=== PATIENT | female | born 1985 | race African-American/Black ===

== ENCOUNTER 2016-10-29 13:43 | Observation (INO) | payer MEDICAID ==
[~2016-10-29] VITALS: Ht 165.1 cm; Wt 62.6 kg
[~2016-10-29 13:43] MED LIST: NITR100C2 PO; PREN-88 PO
== END 2016-10-29 15:00 | disposition home or self-care (01) ==
LOC: L&D 13:43
PROVIDERS: ADMIT Specialist; ATTEND Specialist
DX: O26.893 Other specified pregnancy related conditions, third trimester (principal); L29.9 Pruritus, unspecified; Z3A.29 29 weeks gestation of pregnancy
CPT/HCPCS: G0378

== ENCOUNTER 2016-10-31 10:31 | Observation (INO) | payer MEDICAID ==
[~2016-10-31] VITALS: Ht 165.1 cm; Wt 62.6 kg
[2016-10-31 11:59] LABS: CLARITY URINE CLEAR (CLEAR); COLOR URINE YELLOW (YELLOW); GLUCOSE URINE NEGATIVE (NEGATIVE); KETONES URINE NEGATIVE (NEGATIVE); LEUKOCYTE ESTERASE URINE 1+ (NEGATIVE); NITRITE URINE NEGATIVE (NEGATIVE); OCCULT BLOOD URINE NEGATIVE (NEGATIVE); PH URINE 7.5 (4.5-8.0); PROTEIN URINE NEGATIVE (NEGATIVE); SPECIFIC GRAVITY URINE 1.021 (1.005-1.030)
== END 2016-10-31 12:15 | disposition home or self-care (01) ==
LOC: L&D 10:31
PROVIDERS: ADMIT Obstetrics & Gynecology; ATTEND Obstetrics & Gynecology
DX: O26.853 Spotting complicating pregnancy, third trimester (principal); Z3A.29 29 weeks gestation of pregnancy
CPT/HCPCS: 81001; 99281; G0378

== ENCOUNTER 2016-11-09 11:25 | Emergency (ER) | payer MEDICAID ==
[~2016-11-09] VITALS: Ht 165.1 cm; Wt 64.0 kg
[2016-11-09] MEDS ORDERED: ACETAMINOPHEN 325MG TABLET PO ONE (14:00)
[2016-11-09 14:33] LABS: CLARITY URINE CLOUDY (CLEAR); COLOR URINE YELLOW (YELLOW); GLUCOSE URINE NEGATIVE (NEGATIVE); KETONES URINE NEGATIVE (NEGATIVE); LEUKOCYTE ESTERASE URINE 3+ (NEGATIVE); NITRITE URINE POSITIVE (NEGATIVE); OCCULT BLOOD URINE 3+ (NEGATIVE); PROTEIN URINE 2+ (NEGATIVE); SPECIFIC GRAVITY URINE 1.023 (1.005-1.030); UROBILINOGEN URINE 0.2 E.U./dL (0.2-1.0)
[2016-11-09] MEDS ORDERED: CEFTRIAXONE SODIUM 1 G/VIAL IM ONE (18:15)
[2016-11-09] MEDS ORDERED: LIDOCAINE HCL 1% 20ML VIAL (Pyxis) INJ INFIL ONE (18:15)
[2016-11-09] MEDS ORDERED: DEXT 5%/LACTATED RINGERS 1,000 ML IV SCH (19:38)
[2016-11-09] MEDS ORDERED: CEFAZOLIN 2,000 MG in DEXT 5% WATER 100 ML IV SCH (20:00)
[2016-11-09] MEDS ORDERED: ACETAMINOPHEN WITH CODEINE 300/30MG TABLET PO SCH (21:45)
[2016-11-09 21:53] VITALS: BP 113/58
== END 2016-11-09 23:20 | disposition home or self-care (01) ==
LOC: ER 13:50 → L&D 19:04
PROVIDERS: ADMIT Specialist; ATTEND Specialist
DX: O26.893 Other specified pregnancy related conditions, third trimester (principal); R10.9 Unspecified abdominal pain; Z3A.30 30 weeks gestation of pregnancy; Z87.442 Personal history of urinary calculi
CPT/HCPCS: 76770; 76815; 76818; 81001; 96365; 99285; G0378; J0690; X7700; Z7610; 96360; 96361; J7060

== ENCOUNTER 2017-06-20 10:36 | Emergency (ER) | payer MEDICAID ==
[~2017-06-20] VITALS: Ht 165.1 cm; Wt 52.0 kg
[~2017-06-20 10:36] MED LIST changes: +NITR100C PO; -NITR100C2 PO
[2017-06-20 10:51] VITALS: BP 123/69
[2017-06-20] MEDS ORDERED: ONDANSETRON 4MG ODT PO STA (15:09)
[2017-06-20] MEDS ORDERED: ACETAMINOPHEN 325MG TABLET PO STA (15:09)
[2017-06-20 15:29] LABS: CLARITY URINE CLOUDY (CLEAR); COLOR URINE YELLOW (YELLOW); KETONES URINE NEGATIVE (NEGATIVE); LEUKOCYTE ESTERASE URINE 3+ (NEGATIVE); NITRITE URINE POSITIVE (NEGATIVE); OCCULT BLOOD URINE TRACE (NEGATIVE); PH URINE 5.5 (4.5-8.0); PROTEIN URINE 2+ (NEGATIVE); SPECIFIC GRAVITY URINE 1.019 (1.005-1.030)
[2017-06-20 15:32] LABS: BASOPHILS % 0.2 % (0.0-2.0); HEMATOCRIT. 36.9 % (36.0-48.0); HEMOGLOBIN. 12.3 g/dL (12.0-16.0); LYMPHOCYTES % 12.7 % (20.0-50.0); MEAN CORPUSCULAR HEMOGLOBIN 31.9 pg (28.0-32.0); MEAN CORPUSCULAR VOLUME 95.7 fL (81.0-99.0); MEAN PLATELET VOLUME 7.9 fl (7.4-10.4); MONOCYTES % 9.1 % (2.0-8.0); PLATELET 250 x1000/uL (130-400); RED BLOOD CELL COUNT 3.86 mill/uL (4.2-5.4); RED CELL DISTRIBUTION WIDTH 13.6 % (11.6-14.6)
[2017-06-20 15:38] LABS: CHLORIDE 107 mEq/L (98-107)
== END 2017-06-20 16:51 | disposition home or self-care (01) ==
LOC: ER 12:54
DX: N39.0 Urinary tract infection, site not specified (principal); F17.200 Nicotine dependence, unspecified, uncomplicated
CPT/HCPCS: 36415; 80053; 81003; 81025; 85025; 87077; 87086; 87186; 99284; Q0162

== ENCOUNTER 2017-08-24 12:24 | Emergency (ER) | payer MEDICAID ==
[~2017-08-24] VITALS: Ht 162.6 cm; Wt 49.0 kg
[2017-08-24] MEDS ORDERED: SODIUM CHLORIDE 0.9% 1,000 ML IV ONE (12:31)
[2017-08-24] MEDS ORDERED: ONDANSETRON HCL 4MG/2ML VIAL IV ONE (12:45)
[2017-08-24] MEDS ORDERED: ACETAMINOPHEN 325MG TABLET PO PRN (12:45)
[2017-08-24 13:39] LABS: CLARITY URINE CLOUDY (CLEAR); COLOR URINE YELLOW (YELLOW); KETONES URINE NEGATIVE (NEGATIVE); LEUKOCYTE ESTERASE URINE 1+ (NEGATIVE); NITRITE URINE NEGATIVE (NEGATIVE); OCCULT BLOOD URINE NEGATIVE (NEGATIVE); PH URINE 6.5 (4.5-8.0); PROTEIN URINE 1+ (NEGATIVE); SPECIFIC GRAVITY URINE 1.026 (1.005-1.030); UROBILINOGEN URINE 0.2 E.U./dL (0.2-1.0)
[2017-08-24 14:03] LABS: CHLORIDE 106 mEq/L (98-107)
[2017-08-24 14:11] LABS: BASOPHILS % 0.3 % (0.0-2.0); EOSINOPHILS % 0.1 % (0.0-5.0); HEMATOCRIT. 35.3 % (36.0-48.0); LYMPHOCYTES % 21.4 % (20.0-50.0); MEAN CORPUSCULAR HEMOGLOBIN 32.1 pg (28.0-32.0); MEAN CORPUSCULAR VOLUME 94.1 fL (81.0-99.0); MEAN PLATELET VOLUME 7.3 fl (7.4-10.4); MONOCYTES % 7.2 % (2.0-8.0); PLATELET 304 x1000/uL (130-400); RED BLOOD CELL COUNT 3.75 mill/uL (4.2-5.4); RED CELL DISTRIBUTION WIDTH 13.8 % (11.6-14.6)
[2017-08-24 14:27] LABS: B-HCG QUANTITATIVE 48030 mIU/mL (<3)
[2017-08-24 15:52] VITALS: BP 142/88
[2017-08-24] MEDS ORDERED: METOCLOPRAMIDE HCL 10MG TABLET PO ONE (16:15)
[2017-08-24] MEDS: METOCLOPRAMIDE HCL 10MG TABLET PO NR ×2 (16:26→16:31)
== END 2017-08-24 16:21 | disposition home or self-care (01) ==
LOC: ER 13:51
DX: O20.0 Threatened abortion (principal); O23.11 Infections of bladder in pregnancy, first trimester; Z3A.08 8 weeks gestation of pregnancy; Z87.891 Personal history of nicotine dependence
CPT/HCPCS: 36415; 76801; 76817; 80053; 81003; 81025; 84702; 85025; 86850; 86900; 86901; 99285; J7030; Z7610; J8597

== ENCOUNTER 2017-10-26 14:45 | Emergency (ER) | payer MEDICAID ==
[~2017-10-26] VITALS: Ht 162.6 cm; Wt 53.0 kg
[2017-10-26 15:35] LABS: CLARITY URINE CLEAR (CLEAR); COLOR URINE YELLOW (YELLOW); KETONES URINE TRACE (NEGATIVE); LEUKOCYTE ESTERASE URINE TRACE (NEGATIVE); NITRITE URINE NEGATIVE (NEGATIVE); OCCULT BLOOD URINE NEGATIVE (NEGATIVE); PH URINE 6.5 (4.5-8.0); PROTEIN URINE NEGATIVE (NEGATIVE); SPECIFIC GRAVITY URINE 1.023 (1.005-1.030)
[2017-10-26 17:37] VITALS: BP 106/63
== END 2017-10-26 18:01 | disposition home or self-care (01) ==
LOC: ER 15:38
DX: O23.42 Unspecified infection of urinary tract in pregnancy, second trimester (principal); O36.8120 Decreased fetal movements, second trimester, not applicable or unspecified; Z3A.16 16 weeks gestation of pregnancy
CPT/HCPCS: 36415; 76815; 81003; 84702; 99285

== ENCOUNTER 2017-12-01 16:28 | Observation (INO) | payer MEDICAID ==
[~2017-12-01] VITALS: Ht 165.1 cm; Wt 53.1 kg
[2017-12-01] MEDS ORDERED: ACETAMINOPHEN 500MG TABLET PO ONE (17:30)
[2017-12-01 17:55] LABS: CLARITY URINE CLOUDY (CLEAR); COLOR URINE YELLOW (YELLOW); KETONES URINE NEGATIVE (NEGATIVE); LEUKOCYTE ESTERASE URINE 1+ (NEGATIVE); NITRITE URINE POSITIVE (NEGATIVE); OCCULT BLOOD URINE NEGATIVE (NEGATIVE); PROTEIN URINE NEGATIVE (NEGATIVE); SPECIFIC GRAVITY URINE 1.018 (1.005-1.030); UROBILINOGEN URINE 0.2 E.U./dL (0.2-1.0)
[2017-12-01] MEDS ORDERED: LACTATED RINGERS 1,000 ML IV SCH (18:15)
[2017-12-01] MEDS ORDERED: CEFAZOLIN 1000MG PREMIX 50 ML IV NR (18:30)
== END 2017-12-01 20:13 | disposition home or self-care (01) ==
LOC: L&D 16:28
PROVIDERS: ADMIT Obstetrics & Gynecology; ATTEND Obstetrics & Gynecology
DX: O26.892 Other specified pregnancy related conditions, second trimester (principal); R10.30 Lower abdominal pain, unspecified; M54.5 Low back pain; Z3A.21 21 weeks gestation of pregnancy
CPT/HCPCS: 81003; 96365; G0378; J0690; J7120

== ENCOUNTER 2018-02-09 12:17 | Observation (INO) | payer MEDICAID | END 2018-02-09 13:39 | disposition home or self-care (01) | LOC: L&D 12:17 | PROVIDERS: ADMIT Obstetrics & Gynecology; ATTEND Obstetrics & Gynecology | DX: O26.893 Other specified pregnancy related conditions, third trimester (principal); R10.30 Lower abdominal pain, unspecified; Z3A.31 31 weeks gestation of pregnancy | CPT/HCPCS: 59025; 99281; G0378 ==

== ENCOUNTER 2018-03-25 16:56 | Observation (INO) | payer MEDICAID ==
[~2018-03-25] VITALS: Ht 165.1 cm; Wt 64.4 kg
[~2018-03-25 16:56] MED LIST changes: -NITR100C PO
[2018-03-25] MEDS ORDERED: DEXT 5%/LR + PITOCIN 20UNITS/L 1,000 ML IV SCH (17:18)
[2018-03-25] MEDS ORDERED: LACTATED RINGERS 1,000 ML IV SCH (17:18)
[2018-03-25] MEDS ORDERED: METHYLERGONOVINE MALEATE 0.2 MG/ML IM PRN (17:30)
[2018-03-25] MEDS ORDERED: CARBOPROST TROMETHAMINE 250 MCG/ML AMPUL IM PRN (17:30)
[2018-03-25] MEDS ORDERED: LIDOCAINE HCL 1% 20ML VIAL (Pyxis) INJ INFIL NR (17:30)
[2018-03-25] MEDS ORDERED: NALOXONE HCL 0.4 MG/ML 1ML VIAL IM PRN (17:30)
[2018-03-25] MEDS ORDERED: TERBUTALINE SULFATE 1MG/ML VIAL SUBCUT PRN (17:30)
[2018-03-25] MEDS ORDERED: BUTORPHANOL TARTRATE 2 MG/ML VIAL IV PRN (17:30)
[2018-03-25 17:36] LABS: BASOPHILS % 0.5 % (0.0-2.0); EOSINOPHILS % 0.3 % (0.0-5.0); HEMATOCRIT. 34.2 % (36.0-48.0); HEMOGLOBIN. 11.5 g/dL (12.0-16.0); MEAN CORPUSCULAR HEMOGLOBIN 31.6 pg (28.0-32.0); MEAN CORPUSCULAR VOLUME 94.3 fL (81.0-99.0); MEAN PLATELET VOLUME 8.1 fl (7.4-10.4); MONOCYTES % 9.2 % (2.0-8.0); PLATELET 276 x1000/uL (130-400); RED BLOOD CELL COUNT 3.62 mill/uL (4.2-5.4); RED CELL DISTRIBUTION WIDTH 13.9 % (11.6-14.6)
[2018-03-25 17:41] LABS: INR 0.9; PARTIAL THROMBOPLASTIN TIME 26.7 sec (23.4-31.0); PROTHROMBIN TIME 9.5 sec (9.1-11.1)
[2018-03-25] MEDS ORDERED: PENICILLIN G POTASSIUM 5 MMU in DEXT 5% WATER 100 ML IV NR (18:00)
[2018-03-25 18:09] LABS: HEPATITIS B SURFACE ANTIGEN NEGATIVE
[2018-03-25] MEDS ORDERED: BUPIVACAINE HCL/PF 0.25% (2.5MG/ML) 10ML ONE (18:11)
[2018-03-25] MEDS ORDERED: FENTANYL CITRATE/PF 50MCG/ML 2ML VIAL ONE (18:11)
[2018-03-25] MEDS ORDERED: BUPIVACAINE HCL/NS/PF EPIDURAL 100 ML EP ONE (18:11)
[2018-03-25] MEDS ORDERED: INFLUENZA VIRUS VACCINE(AFLURIA) 0.5ML SYR IM ONE (18:15)
[2018-03-25 18:40] LABS: CLARITY URINE CLEAR (CLEAR); COLOR URINE YELLOW (YELLOW); KETONES URINE NEGATIVE (NEGATIVE); LEUKOCYTE ESTERASE URINE 2+ (NEGATIVE); NITRITE URINE NEGATIVE (NEGATIVE); OCCULT BLOOD URINE 1+ (NEGATIVE); PH URINE 7.5 (4.5-8.0); PROTEIN URINE NEGATIVE (NEGATIVE); SPECIFIC GRAVITY URINE 1.004 (1.005-1.030); UROBILINOGEN URINE 0.2 E.U./dL (0.2-1.0)
[2018-03-25 18:52] LABS: *AMPHETAMINES SCREEN URINE NEGATIVE (NEGATIVE); *BARBITURATES SCREEN URINE NEGATIVE (NEGATIVE); *BENZODIAZEPINES SCREEN URINE NEGATIVE (NEGATIVE); *COCAINE SCREEN URINE NEGATIVE (NEGATIVE); METHADONE URINE SCREEN NEGATIVE (NEGATIVE); OPIATES URINE SCREEN NEGATIVE (NEGATIVE)
[2018-03-25 18:53] LABS: CANNABINOID URINE SCREEN NEGATIVE (NEGATIVE); PHENCYCLIDINE URINE SCREEN NEGATIVE (NEGATIVE)
[2018-03-25] MEDS ORDERED: PENICILLIN G POTASSIUM 2.5 MMU in DEXTROSE 5% WATER 50 ML IV SCH ×2 (22:00→23:00)
[2018-03-25 22:09] VITALS: BP 112/76
[2018-03-25] MEDS: PENICILLIN POTASSIUM IV SCH (22:50)
[2018-03-25] MEDS: DEXTROSE IV SCH (22:50)
[2018-03-25] MEDS: WATER IV SCH (22:50)
[2018-03-26] MEDS: DEXTROSE IV SCH ×2 (03:07→07:51)
[2018-03-26] MEDS: WATER IV SCH ×2 (03:07→07:51)
[2018-03-26] MEDS: PENICILLIN POTASSIUM IV SCH ×2 (03:07→07:51)
== END 2018-03-26 10:30 | disposition home or self-care (01) ==
LOC: L&D 16:56 → 8 EST LDRP 17:14
PROVIDERS: ADMIT Obstetrics & Gynecology; ATTEND Obstetrics & Gynecology
DX: O62.9 Abnormality of forces of labor, unspecified (principal); Z3A.38 38 weeks gestation of pregnancy
CPT/HCPCS: 36415; 76815; 80305; 81003; 85025; 85610; 85730; 86592; 86703; 86762; 86850; 86900; 86901; 87340; 96365; 96366; 96372; 96375; G0378; J0595; J2540; J3010; J3105; J3490; 96360; 96361; J7060

== ENCOUNTER 2018-03-27 06:11 | Inpatient (IN) | payer MEDICAID ==
[~2018-03-27] VITALS: Ht 165.1 cm; Wt 65.3 kg
[2018-03-27] MEDS ORDERED: DEXT 5%/LR + PITOCIN 20UNITS/L 1,000 ML IV SCH ×2 (06:29→08:20)
[2018-03-27] MEDS ORDERED: CARBOPROST TROMETHAMINE 250 MCG/ML AMPUL IM PRN (06:30)
[2018-03-27] MEDS ORDERED: MISOPROSTOL 200MCG TABLET VG SCH (06:30)
[2018-03-27] MEDS ORDERED: NALOXONE HCL 0.4 MG/ML 1ML VIAL IM PRN (06:30)
[2018-03-27] MEDS ORDERED: BUTORPHANOL TARTRATE 2 MG/ML VIAL IV PRN (06:30)
[2018-03-27] MEDS ORDERED: LIDOCAINE HCL 1% 20ML VIAL (Pyxis) INJ INFIL SCH (06:30)
[2018-03-27] MEDS ORDERED: PENICILLIN G POTASSIUM 5 MMU in DEXT 5% WATER 100 ML IV SCH (07:00)
[2018-03-27] MEDS: LACTATED RINGERS 1,000 ML IV SCH ×2 (07:03→07:16)
[2018-03-27] MEDS ORDERED: FENTANYL CITRATE/PF 50MCG/ML 2ML VIAL ONE (07:32)
[2018-03-27] MEDS ORDERED: BUPIVACAINE HCL EP ONE (07:33)
[2018-03-27] MEDS ORDERED: NS EP ONE (07:33)
[2018-03-27] MEDS ORDERED: BUPIVACAINE HCL/PF 0.5% (5MG/ML) 30ML ONE (07:33)
[2018-03-27] MEDS ORDERED: METHYLERGONOVINE MALEATE 0.2 MG/ML IM SCH (08:29)
[2018-03-27] MEDS ORDERED: ACETAMINOPHEN WITH CODEINE 300/30MG TABLET PO PRN (08:30)
[2018-03-27] MEDS ORDERED: DIPHENHYDRAMINE 25MG CAPSULE PO PRN (08:30)
[2018-03-27] MEDS ORDERED: IBUPROFEN 400MG TABLET PO PRN (08:30)
[2018-03-27] MEDS ORDERED: GLYCERIN/WITCH HAZEL LEAF MEDICATED PAD TOP PRN (08:30)
[2018-03-27] MEDS ORDERED: LANOLIN OINT 0.25 GM TUBE TOP PRN (08:30)
[2018-03-27] MEDS ORDERED: HEMORRHOIDAL SUPP PR PRN (08:30)
[2018-03-27] MEDS ORDERED: BISACODYL 10MG SUPP PR PRN (08:30)
[2018-03-27] MEDS ORDERED: BENZOCAINE/LANOLIN/ALOE VERA SPRAY TOP PRN (08:30)
[2018-03-27] MEDS: PRENATAL VIT/FE FUMARATE/FA TABLET PO SCH (09:00)
[2018-03-27 10:15] VITALS: BP 137/80
[2018-03-27 10:45] VITALS: BP 133/76
[2018-03-27] MEDS ORDERED: PENICILLIN G POTASSIUM 2.5 MMU in DEXTROSE 5% WATER 50 ML IV SCH (11:00)
[2018-03-27 11:45] VITALS: BP 117/72
[2018-03-27] MEDS ORDERED: TETANUS, DIPHTHERIA, PERTUSSIS VAC/PF 0.5ML (>7YR OLD) IM ONE (12:00)
[2018-03-27] MEDS: IBUPROFEN 800MG TABLET PO PRN ×2 (15:56→23:15)
[2018-03-27 16:35] VITALS: BP 133/81
[2018-03-27 19:30] VITALS: BP 124/81
[2018-03-27] MEDS: DOCUSATE SODIUM 100MG CAPSULE PO SCH (20:59)
[2018-03-27 23:15] VITALS: BP 139/88
[2018-03-28 09:00] VITALS: BP 117/64
[2018-03-28] MEDS: FERROUS SULFATE 325MG TABLET PO SCH ×3 (09:00→17:49)
[2018-03-28] MEDS ORDERED: INFLUENZA VIRUS VACCINE(AFLURIA) 0.5ML SYR IM ONE (09:00)
[2018-03-28] MEDS: IBUPROFEN 800MG TABLET PO PRN ×2 (12:35→17:48)
[2018-03-28 15:54] LABS: BASOPHILS % 0.5 % (0.0-2.0); EOSINOPHILS % 0.5 % (0.0-5.0); HEMATOCRIT. 35.8 % (36.0-48.0); LYMPHOCYTES % 21.7 % (20.0-50.0); MEAN CORPUSCULAR HEMOGLOBIN 31.3 pg (28.0-32.0); MEAN CORPUSCULAR VOLUME 93.3 fL (81.0-99.0); MEAN PLATELET VOLUME 7.8 fl (7.4-10.4); MONOCYTES % 8.9 % (2.0-8.0); NEUTROPHILS % 68.4 % (40.0-76.0); PLATELET 282 x1000/uL (130-400); RED BLOOD CELL COUNT 3.83 mill/uL (4.2-5.4); RED CELL DISTRIBUTION WIDTH 13.8 % (11.6-14.6)
[2018-03-28 17:00] VITALS: BP 114/69
[2018-03-28 20:10] VITALS: BP 125/77
[2018-03-28] MEDS: DOCUSATE SODIUM 100MG CAPSULE PO SCH (20:58)
[2018-03-29] MEDS: IBUPROFEN 800MG TABLET PO PRN (01:17)
[2018-03-29 04:00] VITALS: BP 118/69
[2018-03-29] MEDS: PRENATAL VIT/FE FUMARATE/FA TABLET PO SCH (08:23)
[2018-03-29] MEDS: FERROUS SULFATE 325MG TABLET PO SCH (08:23)
[2018-03-29 08:45] VITALS: BP 122/80
== END 2018-03-29 13:00 | disposition home or self-care (01) | DRG 560 ==
LOC: OBSVTOIN 06:11 → 8 EST LDRP 06:11 → 8EST 11:00
PROVIDERS: ADMIT Specialist; ATTEND Specialist
PROC: 10E0XZZ Delivery of Products of Conception, External Approach (ICD-10-PCS; principal; 2018-03-27 07:49)
DX: O77.0 Labor and delivery complicated by meconium in amniotic fluid (principal); O99.324 Drug use complicating childbirth; F12.10 Cannabis abuse, uncomplicated; O99.824 Streptococcus B carrier state complicating childbirth; O99.334 Smoking (tobacco) complicating childbirth; O69.81X0 Labor and delivery complicated by cord around neck, without compression, not applicable or unspecified; Z3A.38 38 weeks gestation of pregnancy; Z37.0 Single live birth
CPT/HCPCS: 36415; 86850; 86900; 90686; 90715; 99281; J2210; J2540; J2590; J3010; J3490; J7060; J7120

== ENCOUNTER 2018-07-19 10:02 | Emergency (ER) | payer MEDICAID ==
[~2018-07-19] VITALS: Ht 165.1 cm; Wt 57.0 kg
[2018-07-19 12:30] LABS: CLARITY URINE TURBID (CLEAR); COLOR URINE YELLOW (YELLOW); KETONES URINE NEGATIVE (NEGATIVE); LEUKOCYTE ESTERASE URINE 3+ (NEGATIVE); NITRITE URINE POSITIVE (NEGATIVE); OCCULT BLOOD URINE 3+ (NEGATIVE); PROTEIN URINE 2+ (NEGATIVE); SPECIFIC GRAVITY URINE 1.023 (1.005-1.030); UROBILINOGEN URINE 0.2 E.U./dL (0.2-1.0)
[2018-07-19] MEDS ORDERED: HYDROCODONE/ACETAMINOPHEN 5/325MG TABLET PO ONE (12:45)
[2018-07-19] MEDS ORDERED: LIDOCAINE HCL 1% 20ML VIAL (Pyxis) INJ INFIL ONE (12:45)
[2018-07-19] MEDS ORDERED: ONDANSETRON 4MG ODT PO ONE (12:45)
[2018-07-19] MEDS ORDERED: CEFTRIAXONE SODIUM 1 G/VIAL IM ONE (12:45)
[2018-07-19 14:10] VITALS: BP 139/81
== END 2018-07-19 14:22 | disposition home or self-care (01) ==
LOC: ER 10:02
DX: N30.00 Acute cystitis without hematuria (principal); R10.2 Pelvic and perineal pain; F17.210 Nicotine dependence, cigarettes, uncomplicated; Z87.442 Personal history of urinary calculi
CPT/HCPCS: 76770; 81003; 81025; 87077; 87086; 87186; 96372; 99284; J0696; J3490; Q0162

== ENCOUNTER 2018-12-21 03:33 | Emergency (ER) | payer MEDICAID ==
[~2018-12-21] VITALS: Ht 165.1 cm; Wt 50.0 kg
[2018-12-21] MEDS ORDERED: ACETAMINOPHEN 325MG TABLET PO PRN (04:15)
[2018-12-21] MEDS ORDERED: ONDANSETRON HCL 4MG/2ML INJ IV ONE (04:15)
[2018-12-21 04:35] LABS: CHLORIDE 104 mEq/L (98-107)
[2018-12-21 04:36] LABS: BASOPHILS % 0.3 % (0.0-2.0); EOSINOPHILS % 1.3 % (0.0-5.0); HEMATOCRIT. 40.1 % (36.0-48.0); HEMOGLOBIN. 13.3 g/dL (12.0-16.0); LYMPHOCYTES % 19.4 % (20.0-50.0); MEAN CORPUSCULAR HEMOGLOBIN 32.1 pg (28.0-32.0); MEAN CORPUSCULAR VOLUME 96.7 fL (81.0-99.0); MEAN PLATELET VOLUME 7.4 fl (7.4-10.4); MONOCYTES % 5.5 % (2.0-8.0); NEUTROPHILS % 73.5 % (40.0-76.0); PLATELET 328 x1000/uL (130-400); RED BLOOD CELL COUNT 4.15 mill/uL (4.2-5.4); RED CELL DISTRIBUTION WIDTH 14.2 % (11.6-14.6)
[2018-12-21 04:47] LABS: CLARITY URINE CLOUDY (CLEAR); COLOR URINE YELLOW (YELLOW); KETONES URINE NEGATIVE (NEGATIVE); LEUKOCYTE ESTERASE URINE 3+ (NEGATIVE); NITRITE URINE POSITIVE (NEGATIVE); OCCULT BLOOD URINE TRACE (NEGATIVE); PROTEIN URINE NEGATIVE (NEGATIVE)
[2018-12-21 05:05] LABS: B-HCG QUANTITATIVE 32172 mIU/mL (<3)
[2018-12-21 05:12] LABS: *BARBITURATES SCREEN URINE NEGATIVE (NEGATIVE); *BENZODIAZEPINES SCREEN URINE NEGATIVE (NEGATIVE); METHADONE URINE SCREEN NEGATIVE (NEGATIVE)
[2018-12-21 05:14] LABS: CANNABINOID URINE SCREEN NEGATIVE (NEGATIVE); OPIATES URINE SCREEN NEGATIVE (NEGATIVE); PHENCYCLIDINE URINE SCREEN NEGATIVE (NEGATIVE)
[2018-12-21] MEDS ORDERED: CEPHALEXIN 250MG CAPSULE PO SCH (05:15)
[2018-12-21 05:21] LABS: *AMPHETAMINES SCREEN URINE NEGATIVE (NEGATIVE); *COCAINE SCREEN URINE PRESUMTIVE POSITIVE (NEGATIVE)
[2018-12-21 06:40] VITALS: BP 98/48
== END 2018-12-21 06:42 | disposition home or self-care (01) ==
LOC: ER 03:33
DX: O23.32 Infections of other parts of urinary tract in pregnancy, second trimester (principal); Z3A.14 14 weeks gestation of pregnancy; F17.200 Nicotine dependence, unspecified, uncomplicated
CPT/HCPCS: 36415; 76805; 80053; 80305; 81003; 81025; 84702; 85025; 86850; 86900; 86901; 96374; 99284; J2405

== ENCOUNTER 2019-06-03 01:55 | Observation (INO) | payer MEDICAID ==
[~2019-06-03] VITALS: Ht 165.1 cm; Wt 63.5 kg
[2019-06-03] MEDS ORDERED: FLUCONAZOLE 150MG TABLET PO NR (03:15)
== END 2019-06-03 03:45 | disposition home or self-care (01) ==
LOC: 8 EST LDRP 01:55
PROVIDERS: ADMIT Obstetrics & Gynecology; ATTEND Obstetrics & Gynecology
DX: O26.893 Other specified pregnancy related conditions, third trimester (principal); N89.8 Other specified noninflammatory disorders of vagina; O62.9 Abnormality of forces of labor, unspecified; Z3A.37 37 weeks gestation of pregnancy
CPT/HCPCS: 87081; 99281; G0378

== ENCOUNTER 2019-09-06 12:10 | Emergency (ER) | payer MEDICAID ==
[~2019-09-06] VITALS: Ht 165.1 cm; Wt 63.0 kg
[2019-09-06] MEDS ORDERED: CEFTRIAXONE SODIUM 250 MG/VIAL IM ONE (14:30)
[2019-09-06] MEDS ORDERED: AZITHROMYCIN 500 MG TABLET PO ONE (14:30)
[2019-09-06] MEDS ORDERED: ACETAMINOPHEN 325MG TABLET PO ONE (14:30)
[2019-09-06 15:39] LABS: CLARITY URINE CLOUDY (CLEAR); COLOR URINE YELLOW (YELLOW); KETONES URINE TRACE (NEGATIVE); LEUKOCYTE ESTERASE URINE 3+ (NEGATIVE); NITRITE URINE POSITIVE (NEGATIVE); OCCULT BLOOD URINE NEGATIVE (NEGATIVE); PH URINE 6.5 (4.5-8.0); PROTEIN URINE TRACE (NEGATIVE); SPECIFIC GRAVITY URINE 1.026 (1.005-1.030)
[2019-09-06 16:01] LABS: *AMPHETAMINES SCREEN URINE NEGATIVE (NEGATIVE); *BARBITURATES SCREEN URINE NEGATIVE (NEGATIVE); *BENZODIAZEPINES SCREEN URINE NEGATIVE (NEGATIVE); METHADONE URINE SCREEN NEGATIVE (NEGATIVE); OPIATES URINE SCREEN NEGATIVE (NEGATIVE)
[2019-09-06 16:02] LABS: CANNABINOID URINE SCREEN NEGATIVE (NEGATIVE); PHENCYCLIDINE URINE SCREEN NEGATIVE (NEGATIVE)
[2019-09-06 16:06] LABS: *COCAINE SCREEN URINE PRESUMTIVE POSITIVE (NEGATIVE)
[2019-09-06 16:40] LABS: BASOPHILS % 0.4 % (0.0-2.0); EOSINOPHILS % 2.1 % (0.0-5.0); HEMATOCRIT. 45.1 % (36.0-48.0); HEMOGLOBIN. 15.2 g/dL (12.0-16.0); LYMPHOCYTES % 36.6 % (20.0-50.0); MEAN CORPUSCULAR HEMOGLOBIN 32.1 pg (28.0-32.0); MEAN CORPUSCULAR VOLUME 95.2 fL (81.0-99.0); MEAN PLATELET VOLUME 7.6 fl (7.4-10.4); MONOCYTES % 6.2 % (2.0-8.0); NEUTROPHILS % 54.7 % (40.0-76.0); PLATELET 312 x1000/uL (130-400); RED BLOOD CELL COUNT 4.73 mill/uL (4.2-5.4); RED CELL DISTRIBUTION WIDTH 15.8 % (11.6-14.6)
[2019-09-06 16:42] LABS: CHLORIDE 108 mEq/L (98-107)
[2019-09-06 16:50] VITALS: BP 118/74
[2019-09-10 07:10] LABS: NEISSERIA GONORRHOEAE NAA Negative (Negative)
== END 2019-09-06 17:04 | disposition home or self-care (01) ==
LOC: ER 12:33
DX: N39.0 Urinary tract infection, site not specified (principal)
CPT/HCPCS: 36415; 80048; 80305; 81003; 81025; 85025; 87077; 87086; 87186; 87491; 87591; 99283; J0696

== ENCOUNTER 2019-12-16 13:32 | Emergency (ER) | payer MEDICAID ==
[~2019-12-16] VITALS: Ht 165.1 cm; Wt 47.0 kg
[2019-12-16] MEDS ORDERED: ONDANSETRON 4MG ODT PO ONE (14:45)
[2019-12-16 15:35] LABS: BASOPHILS % 0.6 % (0.0-2.0); EOSINOPHILS % 1.3 % (0.0-5.0); HEMATOCRIT. 42.2 % (36.0-48.0); HEMOGLOBIN. 14.4 g/dL (12.0-16.0); LYMPHOCYTES % 57.3 % (20.0-50.0); MEAN CORPUSCULAR HEMOGLOBIN 32.7 pg (28.0-32.0); MEAN CORPUSCULAR VOLUME 95.8 fL (81.0-99.0); MEAN PLATELET VOLUME 7.6 fl (7.4-10.4); MONOCYTES % 14.9 % (2.0-8.0); NEUTROPHILS % 25.9 % (40.0-76.0); PLATELET 255 x1000/uL (130-400); RED CELL DISTRIBUTION WIDTH 13.6 % (11.6-14.6)
[2019-12-16 15:40] LABS: CHLORIDE 105 mEq/L (98-107)
[2019-12-16 16:14] LABS: HCG SCREEN NEGATIVE
[2019-12-16 18:56] VITALS: BP 143/100
== END 2019-12-16 19:13 | disposition home or self-care (01) ==
LOC: ER 13:32
DX: B34.9 Viral infection, unspecified (principal); R05 Cough; R19.7 Diarrhea, unspecified; Z03.818 Encounter for observation for suspected exposure to other biological agents ruled out
CPT/HCPCS: 36415; 71045; 80053; 83880; 84484; 84703; 85025; 87426; 93005; 99285; Q0162

== ENCOUNTER 2020-05-05 22:29 | Emergency (ER) | payer MEDICAID ==
[~2020-05-05] VITALS: Ht 165.1 cm; Wt 53.0 kg
[2020-05-05 22:33] VITALS: BP 122/68
[2020-05-05 23:56] LABS: CLARITY URINE CLEAR (CLEAR); COLOR URINE YELLOW (YELLOW); KETONES URINE NEGATIVE (NEGATIVE); LEUKOCYTE ESTERASE URINE NEGATIVE (NEGATIVE); NITRITE URINE NEGATIVE (NEGATIVE); OCCULT BLOOD URINE 1+ (NEGATIVE); PH URINE 5.5 (4.5-8.0); PROTEIN URINE NEGATIVE (NEGATIVE); SPECIFIC GRAVITY URINE 1.029 (1.005-1.030)
[2020-05-06 00:47] LABS: BASOPHILS % 0.5 % (0.0-2.0); EOSINOPHILS % 0.9 % (0.0-5.0); HEMOGLOBIN. 11.8 g/dL (12.0-16.0); LYMPHOCYTES % 29.8 % (20.0-50.0); MEAN CORPUSCULAR HEMOGLOBIN 32.1 pg (28.0-32.0); MEAN CORPUSCULAR VOLUME 94.9 fL (81.0-99.0); MEAN PLATELET VOLUME 7.5 fl (7.4-10.4); NEUTROPHILS % 58.8 % (40.0-76.0); PLATELET 312 x1000/uL (130-400); RED BLOOD CELL COUNT 3.69 mill/uL (4.2-5.4); RED CELL DISTRIBUTION WIDTH 12.7 % (11.6-14.6)
== END 2020-05-06 01:53 | disposition home or self-care (01) ==
LOC: ER 22:29
DX: O20.0 Threatened abortion (principal); Z3A.01 Less than 8 weeks gestation of pregnancy
CPT/HCPCS: 36415; 76801; 81003; 81025; 84702; 85025; 86850; 86900; 93005; 99285

== ENCOUNTER 2020-06-15 05:17 | Emergency (ER) | payer MEDICAID ==
[~2020-06-15] VITALS: Ht 165.1 cm; Wt 54.0 kg
[2020-06-15] MEDS ORDERED: DEXT 5%/LR + PITOCIN 20UNITS/L 1,000 ML IV ONE (07:00)
[2020-06-15 07:44] LABS: BASOPHILS % 0.4 % (0.0-2.0); EOSINOPHILS % 0.4 % (0.0-5.0); HEMATOCRIT. 28.6 % (36.0-48.0); HEMOGLOBIN. 9.7 g/dL (12.0-16.0); LYMPHOCYTES % 24.1 % (20.0-50.0); MEAN CORPUSCULAR HEMOGLOBIN 32.7 pg (28.0-32.0); MEAN CORPUSCULAR VOLUME 96.1 fL (81.0-99.0); MEAN PLATELET VOLUME 7.8 fl (7.4-10.4); MONOCYTES % 4.4 % (2.0-8.0); NEUTROPHILS % 70.7 % (40.0-76.0); PLATELET 295 x1000/uL (130-400); RED BLOOD CELL COUNT 2.98 mill/uL (4.2-5.4); RED CELL DISTRIBUTION WIDTH 13.9 % (11.6-14.6)
[2020-06-15] MEDS ORDERED: ONDANSETRON HCL 4MG/2ML INJ IV PRN (07:45)
[2020-06-15 08:01] LABS: CHLORIDE 108 mEq/L (98-107)
[2020-06-15 08:51] LABS: B-HCG QUANTITATIVE 19099 mIU/mL (<3)
[2020-06-15] MEDS ORDERED: FERR325T6 MT (12:36)
[2020-06-15 13:11] VITALS: BP 109/68
== END 2020-06-15 13:15 | disposition home or self-care (01) ==
LOC: ER 05:17
DX: O03.9 Complete or unspecified spontaneous abortion without complication (principal); I95.9 Hypotension, unspecified; Z20.822 Contact with and (suspected) exposure to COVID-19
CPT/HCPCS: 36415; 76801; 76817; 80053; 84702; 85025; 86850; 86900; 86901; 87426; 93005; 96365; 99285; J2590

== ENCOUNTER 2020-07-24 14:59 | Emergency (ER) | payer MEDICAID ==
[~2020-07-24] VITALS: Ht 165.1 cm; Wt 57.0 kg
[~2020-07-24 14:59] MED LIST changes: +FERR325T6 MT; -PREN-88 PO
[2020-07-24 16:39] LABS: BASOPHILS % 0.6 % (0.0-2.0); EOSINOPHILS % 1.4 % (0.0-5.0); HEMATOCRIT. 23.8 % (36.0-48.0); HEMOGLOBIN. 7.7 g/dL (12.0-16.0); LYMPHOCYTES % 39.4 % (20.0-50.0); MEAN CORPUSCULAR HEMOGLOBIN 27.7 pg (28.0-32.0); MEAN CORPUSCULAR VOLUME 85.3 fL (81.0-99.0); MEAN PLATELET VOLUME 7.3 fl (7.4-10.4); MONOCYTES % 9.6 % (2.0-8.0); PLATELET 523 x1000/uL (130-400); RED BLOOD CELL COUNT 2.78 mill/uL (4.2-5.4)
[2020-07-24 16:44] LABS: CHLORIDE 106 mEq/L (98-107)
[2020-07-24 16:54] LABS: B-HCG QUANTITATIVE 422 mIU/mL (<3)
[2020-07-24 20:00] VITALS: BP 120/68
== END 2020-07-24 20:28 | disposition home or self-care (01) ==
LOC: ER 15:43
DX: N93.8 Other specified abnormal uterine and vaginal bleeding (principal); F17.200 Nicotine dependence, unspecified, uncomplicated; I49.9 Cardiac arrhythmia, unspecified
CPT/HCPCS: 36415; 76801; 80053; 84702; 85025; 86850; 86900; 93005; 99285

== ENCOUNTER 2021-09-27 23:34 | Emergency (ER) | payer MEDICAID ==
[~2021-09-27] VITALS: Ht 165.1 cm; Wt 55.0 kg
[2021-09-28] MEDS ORDERED: IBUP-2029 MT (03:03)
[2021-09-28] MEDS ORDERED: T3 PO (03:03)
[2021-09-28] MEDS ORDERED: HYDROCODONE/ACETAMINOPHEN 5/325MG TABLET PO ONE (03:15)
[2021-09-28 03:54] VITALS: BP 156/83
== END 2021-09-28 03:56 | disposition home or self-care (01) ==
LOC: ER 23:34
DX: S02.2XXA Fracture of nasal bones, initial encounter for closed fracture (principal); S22.32XA Fracture of one rib, left side, initial encounter for closed fracture; X58.XXXA Exposure to other specified factors, initial encounter; Y93.89 Activity, other specified; Y92.89 Other specified places as the place of occurrence of the external cause; Y99.8 Other external cause status; Z79.899 Other long term (current) drug therapy
CPT/HCPCS: 70486; 71100; 81025; 99284

== ENCOUNTER 2021-12-31 20:02 | Emergency (ER) | payer MEDICAID ==
[~2021-12-31] VITALS: Ht 162.6 cm; Wt 58.0 kg
[~2021-12-31 20:02] MED LIST changes: +IBUP-2029 MT; +T3 PO
[2021-12-31 20:12] VITALS: BP 165/109
== END 2021-12-31 20:52 | disposition left against medical advice (07) ==
LOC: ER 20:02
DX: T40.411A Poisoning by fentanyl or fentanyl analogs, accidental (unintentional), initial encounter (principal); F14.10 Cocaine abuse, uncomplicated; Z53.21 Procedure and treatment not carried out due to patient leaving prior to being seen by health care provider; Y92.9 Unspecified place or not applicable
CPT/HCPCS: 99283

== ENCOUNTER 2022-02-25 17:06 | Emergency (ER) | payer MEDICAID ==
[~2022-02-25] VITALS: Ht 165.1 cm; Wt 117.0 kg
[2022-02-25 17:16] VITALS: BP 117/86
== END 2022-02-25 21:10 | disposition left against medical advice (07) ==
LOC: ER 17:06
DX: Z53.21 Procedure and treatment not carried out due to patient leaving prior to being seen by health care provider (principal)

== ENCOUNTER 2022-02-27 13:26 | Emergency (ER) | payer MEDICAID ==
[~2022-02-27] VITALS: Ht 162.6 cm; Wt 53.0 kg
[2022-02-27 13:46] VITALS: BP 118/68
[2022-02-27 16:48] LABS: BASOPHILS % 0.8 % (0.0-2.0); EOSINOPHILS % 0.8 % (0.0-5.0); HEMOGLOBIN. 12.8 g/dL (12.0-16.0); LYMPHOCYTES % 29.4 % (20.0-50.0); MEAN CORPUSCULAR VOLUME 95.3 fL (81.0-99.0); MEAN PLATELET VOLUME 7.4 fl (7.4-10.4); MONOCYTES % 6.8 % (2.0-8.0); NEUTROPHILS % 62.2 % (40.0-76.0); PLATELET 357 x1000/uL (130-400); RED BLOOD CELL COUNT 3.89 mill/uL (4.2-5.4); RED CELL DISTRIBUTION WIDTH 14.2 % (11.6-14.6)
[2022-02-27 16:49] LABS: CLARITY URINE CLOUDY (CLEAR); COLOR URINE YELLOW (YELLOW); KETONES URINE NEGATIVE (NEGATIVE); LEUKOCYTE ESTERASE URINE 1+ (NEGATIVE); NITRITE URINE NEGATIVE (NEGATIVE); OCCULT BLOOD URINE NEGATIVE (NEGATIVE); PH URINE 6.5 (4.5-8.0); PROTEIN URINE NEGATIVE (NEGATIVE); SPECIFIC GRAVITY URINE 1.012 (1.005-1.030)
[2022-02-27 16:55] LABS: CHLORIDE 107 mEq/L (98-107)
[2022-02-27 17:17] LABS: B-HCG QUANTITATIVE 49927 mIU/mL (<3)
[2022-02-27] MEDS ORDERED: NITR-87 MT (17:38)
== END 2022-02-27 17:52 | disposition home or self-care (01) ==
LOC: ER 13:26
DX: O20.0 Threatened abortion (principal); O23.31 Infections of other parts of urinary tract in pregnancy, first trimester; Z3A.01 Less than 8 weeks gestation of pregnancy; F14.10 Cocaine abuse, uncomplicated; Z79.899 Other long term (current) drug therapy
CPT/HCPCS: 36415; 76801; 80053; 81003; 81025; 84702; 85025; 86900; 99284

== ENCOUNTER 2022-03-29 12:04 | Emergency (ER) | payer MEDICAID ==
[~2022-03-29] VITALS: Ht 165.1 cm; Wt 54.0 kg
[~2022-03-29 12:04] MED LIST changes: +NITR-87 MT
[2022-03-29 12:07] VITALS: BP 116/66
[2022-03-29 16:06] LABS: BASOPHILS % 0.9 % (0.0-2.0); EOSINOPHILS % 0.4 % (0.0-5.0); HEMATOCRIT. 35.6 % (36.0-48.0); HEMOGLOBIN. 12.2 g/dL (12.0-16.0); LYMPHOCYTES % 25.1 % (20.0-50.0); MEAN CORPUSCULAR HEMOGLOBIN 33.1 pg (28.0-32.0); MEAN CORPUSCULAR VOLUME 96.3 fL (81.0-99.0); MEAN PLATELET VOLUME 7.4 fl (7.4-10.4); MONOCYTES % 7.4 % (2.0-8.0); NEUTROPHILS % 66.2 % (40.0-76.0); PLATELET 424 x1000/uL (130-400); RED BLOOD CELL COUNT 3.69 mill/uL (4.2-5.4); RED CELL DISTRIBUTION WIDTH 14.4 % (11.6-14.6)
[2022-03-29 16:17] LABS: CHLORIDE 101 mEq/L (98-107)
[2022-03-29 16:41] LABS: B-HCG QUANTITATIVE 50835 mIU/mL (<3)
[2022-03-29] MEDS ORDERED: CEPH500C2 MT (18:34)
[2022-03-29 18:42] LABS: CLARITY URINE CLEAR (CLEAR); COLOR URINE YELLOW (YELLOW); KETONES URINE NEGATIVE (NEGATIVE); LEUKOCYTE ESTERASE URINE TRACE (NEGATIVE); NITRITE URINE NEGATIVE (NEGATIVE); OCCULT BLOOD URINE NEGATIVE (NEGATIVE); PH URINE 6.5 (4.5-8.0); PROTEIN URINE NEGATIVE (NEGATIVE); SPECIFIC GRAVITY URINE 1.018 (1.005-1.030)
== END 2022-03-29 18:46 | disposition home or self-care (01) ==
LOC: ER 12:04
DX: O46.91 Antepartum hemorrhage, unspecified, first trimester (principal); Z3A.11 11 weeks gestation of pregnancy
CPT/HCPCS: 36415; 76801; 80053; 81003; 81025; 84702; 85025; 86850; 86900; 99284

== ENCOUNTER 2022-06-11 14:47 | Observation (INO) | payer MEDICAID ==
[~2022-06-11] VITALS: Ht 165.1 cm; Wt 59.4 kg
[~2022-06-11 14:47] MED LIST changes: +CEPH500C2 MT
[2022-06-11] MEDS ORDERED: LACTATED RINGERS 1,000 ML IV SCH (15:30)
[2022-06-11] MEDS ORDERED: ACETAMINOPHEN 500MG TABLET PO ONE (15:30)
[2022-06-11 15:56] LABS: HEMOGLOBIN. 10.5 g/dL (12.0-16.0); MEAN CORPUSCULAR HEMOGLOBIN 32.7 pg (28.0-32.0); MEAN PLATELET VOLUME 7.3 fl (7.4-10.4); PLATELET 321 x1000/uL (130-400); RED BLOOD CELL COUNT 3.23 mill/uL (4.2-5.4); RED CELL DISTRIBUTION WIDTH 13.7 % (11.6-14.6)
[2022-06-11 15:57] LABS: CLARITY URINE CLOUDY (CLEAR); COLOR URINE YELLOW (YELLOW); KETONES URINE NEGATIVE (NEGATIVE); LEUKOCYTE ESTERASE URINE 2+ (NEGATIVE); NITRITE URINE POSITIVE (NEGATIVE); OCCULT BLOOD URINE NEGATIVE (NEGATIVE); PROTEIN URINE TRACE (NEGATIVE); SPECIFIC GRAVITY URINE 1.021 (1.005-1.030)
[2022-06-11] MEDS ORDERED: CEFAZOLIN 2,000 MG in DEXT 5% WATER 100 ML IV SCH (17:00)
[2022-06-11 17:19] LABS: PLATELET ESTIMATE NORMAL
== END 2022-06-11 17:23 | disposition home or self-care (01) ==
LOC: 8 EST LDRP 14:47
PROVIDERS: ADMIT Obstetrics & Gynecology; ATTEND Obstetrics & Gynecology
DX: O26.892 Other specified pregnancy related conditions, second trimester (principal); R10.9 Unspecified abdominal pain; R09.81 Nasal congestion; R68.83 Chills (without fever); Z20.822 Contact with and (suspected) exposure to COVID-19; Z3A.21 21 weeks gestation of pregnancy
CPT/HCPCS: 36415; 59025; 76805; 81003; 85025; 87077; 87086; 87186; 87426; 96361; 96365; G0378; J0690; J7060; 96360; 99281; G0379

== ENCOUNTER 2022-08-05 17:54 | Observation (INO) | payer MEDICAID ==
[~2022-08-05] VITALS: Ht 165.1 cm; Wt 65.8 kg
[2022-08-05 19:08] LABS: CLARITY URINE CLEAR (CLEAR); COLOR URINE YELLOW (YELLOW); KETONES URINE NEGATIVE (NEGATIVE); LEUKOCYTE ESTERASE URINE 1+ (NEGATIVE); NITRITE URINE NEGATIVE (NEGATIVE); OCCULT BLOOD URINE NEGATIVE (NEGATIVE); PH URINE 6.5 (4.5-8.0); PROTEIN URINE NEGATIVE (NEGATIVE); SPECIFIC GRAVITY URINE 1.008 (1.005-1.030); UROBILINOGEN URINE 0.2 E.U./dL (0.2-1.0)
[2022-08-05] MEDS ORDERED: CITRIC ACID/SODIUM CITRATE SOLN 30ML UDC PO NR (21:30)
== END 2022-08-05 22:00 | disposition home or self-care (01) ==
LOC: 8 EST LDRP 17:54
PROVIDERS: ADMIT Obstetrics & Gynecology; ATTEND Obstetrics & Gynecology
DX: O62.9 Abnormality of forces of labor, unspecified (principal); O26.893 Other specified pregnancy related conditions, third trimester; R12 Heartburn; Z3A.29 29 weeks gestation of pregnancy
CPT/HCPCS: 59025; 76805; 76818; 81003; G0378; 99281

== ENCOUNTER 2022-08-27 20:59 | Observation (INO) | payer MEDICAID ==
[~2022-08-27] VITALS: Ht 165.1 cm; Wt 58.5 kg
== END 2022-08-27 23:00 | disposition home or self-care (01) ==
LOC: 8 EST LDRP 20:59
PROVIDERS: ADMIT Obstetrics & Gynecology; ATTEND Obstetrics & Gynecology
DX: O26.893 Other specified pregnancy related conditions, third trimester (principal); R10.30 Lower abdominal pain, unspecified; R10.2 Pelvic and perineal pain; Z3A.32 32 weeks gestation of pregnancy; Z79.899 Other long term (current) drug therapy
CPT/HCPCS: 59025; 99281; G0378

== ENCOUNTER 2022-09-18 21:42 | Observation (INO) | payer MEDICAID ==
[~2022-09-18] VITALS: Ht 165.1 cm; Wt 68.0 kg
[2022-09-18] MEDS ORDERED: TERBUTALINE SULFATE 1MG/ML VIAL SUBCUT NR (22:45)
[2022-09-18] MEDS ORDERED: CEFAZOLIN 2,000 MG in DEXT 5% WATER 100 ML IV NR (23:00)
[2022-09-18] MEDS ORDERED: LACTATED RINGERS 1,000 ML IV ONE (23:00)
== END 2022-09-18 22:35 | disposition left against medical advice (07) ==
LOC: 8 EST LDRP 21:42
PROVIDERS: ADMIT Obstetrics & Gynecology; ATTEND Obstetrics & Gynecology
DX: O26.893 Other specified pregnancy related conditions, third trimester (principal); R10.30 Lower abdominal pain, unspecified; O62.9 Abnormality of forces of labor, unspecified; Z3A.35 35 weeks gestation of pregnancy
CPT/HCPCS: 59025; 99281; G0378; J0690; J7060; G0379

== ENCOUNTER 2022-09-25 00:05 | Observation (INO) | payer BC, MEDICAID ==
[~2022-09-25] VITALS: Ht 165.1 cm; Wt 65.8 kg
[2022-09-25 01:50] LABS: CLARITY URINE CLEAR (CLEAR); COLOR URINE YELLOW (YELLOW); KETONES URINE NEGATIVE (NEGATIVE); LEUKOCYTE ESTERASE URINE 3+ (NEGATIVE); NITRITE URINE NEGATIVE (NEGATIVE); OCCULT BLOOD URINE NEGATIVE (NEGATIVE); PH URINE 6.5 (4.5-8.0); PROTEIN URINE NEGATIVE (NEGATIVE); SPECIFIC GRAVITY URINE 1.008 (1.005-1.030); UROBILINOGEN URINE 0.2 E.U./dL (0.2-1.0)
[2022-09-25] MEDS ORDERED: CEFAZOLIN 2,000 MG in DEXT 5% WATER 100 ML IV NR (03:15)
[2022-09-25] MEDS ORDERED: LACTATED RINGERS 1,000 ML IV NR (03:15)
[2022-10-03] MEDS ORDERED: FERR-63 PO (12:09)
[2022-10-03] MEDS ORDERED: IBUP-2030 PO (12:09)
[2022-10-03] MEDS ORDERED: MULT-1146 MT (12:09)
== END 2022-09-25 05:06 | disposition home or self-care (01) ==
LOC: 8 EST LDRP 00:05
PROVIDERS: ADMIT Obstetrics & Gynecology; ATTEND Obstetrics & Gynecology
DX: O26.893 Other specified pregnancy related conditions, third trimester (principal); N89.8 Other specified noninflammatory disorders of vagina; R10.9 Unspecified abdominal pain; O62.9 Abnormality of forces of labor, unspecified; Z3A.36 36 weeks gestation of pregnancy
CPT/HCPCS: 59025; 96365; 81003; 76815; 76818; J0690; J7060; G0378 ×2; 99281

== ENCOUNTER 2023-10-16 10:55 | Emergency (ER) | payer MEDICAID ==
[~2023-10-16] VITALS: Ht 160 cm; Wt 49.0 kg
[~2023-10-16 10:55] MED LIST changes: -CEPH500C2 MT; +FERR-63 PO; -FERR325T6 MT; -IBUP-2029 MT; +IBUP-2030 PO; +MULT-1146 MT; -NITR-87 MT; -T3 PO
[2023-10-16 11:14] VITALS: BP 132/88; PULSE 76; RESP 20; TEMP 98.2; O2SAT 98
[2023-10-16 11:32] LABS: CLARITY URINE CLEAR (CLEAR); COLOR URINE YELLOW (YELLOW); GLUCOSE URINE NEGATIVE (NEGATIVE); KETONES URINE NEGATIVE (NEGATIVE); LEUKOCYTE ESTERASE URINE 1+ (NEGATIVE); NITRITE URINE NEGATIVE (NEGATIVE); OCCULT BLOOD URINE 1+ (NEGATIVE); PH URINE 7.5 (4.5-8.0); PROTEIN URINE NEGATIVE (NEGATIVE); UROBILINOGEN URINE 0.2 E.U./dL (0.2-1.0)
[2023-10-16 11:41] LABS: BACTERIA URINE 3+; RBC URINE 0-2 /hpf (0-2); SQUAMOUS EPITHELIAL CELL URINE 2+ /lpf (RARE/1+); YEAST URINE NONE SEEN
[2023-10-16 12:34] LABS: HEMATOCRIT. 37.3 % (36.0-48.0); HEMOGLOBIN. 12.5 g/dL (12.0-16.0); MEAN CORPUSCULAR HEMOGLOBIN 32.7 pg (28.0-32.0); MEAN CORPUSCULAR HGB CONC 33.6 g/dL (31.0-37.0); MEAN CORPUSCULAR VOLUME 97.4 fL (81.0-99.0); MEAN PLATELET VOLUME 7.2 fl (7.4-10.4); PLATELET 353 x1000/uL (130-400); RED BLOOD CELL COUNT 3.83 mill/uL (4.2-5.4); WHITE BLOOD COUNT 7.3 x1000/uL (4.5-11.0)
[2023-10-16 12:45] LABS: CHLORIDE 103 mEq/L (98-107); POTASSIUM 3.7 mEq/L (3.5-5.1); SODIUM 134 mEq/L (136-145)
[2023-10-16 12:46] LABS: CARBON DIOXIDE 24 mEq/L (21-32)
[2023-10-16 12:47] LABS: CALCIUM 9.8 mg/dL (8.7-10.4)
[2023-10-16 12:51] LABS: CREATININE 0.7 mg/dL (0.6-1.0); GLUCOSE 123 mg/dL (70-105); UREA NITROGEN BLOOD 8 mg/dL (9-23)
[2023-10-16 12:53] LABS: ALANINE AMINOTRANSFERASE 14 IU/L (10-49); ALBUMIN 4.8 g/dL (3.2-4.8); ASPARTATE AMINOTRANSFERASE 17 IU/L (<34); BILIRUBIN TOTAL 0.4 mg/dL (0.1-1.0)
[2023-10-16 12:54] LABS: PROTEIN TOTAL 7.5 g/dL (6.0-8.3)
[2023-10-16 13:05] LABS: B-HCG QUANTITATIVE 70333 mIU/mL (<3)
[2023-10-16] MEDS ORDERED: MULT-1146 MT (14:40)
[2023-10-16] MEDS ORDERED: CEPH500T MT (14:40)
[2023-10-16 15:56] LABS: PLATELET ESTIMATE NORMAL
== END 2023-10-16 12:16 | disposition home or self-care (01) ==
LOC: ER 10:55
DX: O20.0 Threatened abortion (principal); Z3A.01 Less than 8 weeks gestation of pregnancy; O23.41 Unspecified infection of urinary tract in pregnancy, first trimester; N39.0 Urinary tract infection, site not specified
CPT/HCPCS: 36415; 76801; 80053; 81003; 81025; 84702; 85025; 86850; 86900; 99284

== ENCOUNTER 2023-11-16 14:07 | Emergency (ER) | payer MEDICAID ==
[~2023-11-16] VITALS: Ht 162.6 cm; Wt 58.0 kg
[~2023-11-16 14:07] MED LIST changes: +CEPH500T MT
[2023-11-16 14:19] VITALS: BP 114/81; PULSE 78; RESP 18; TEMP 98.1; O2SAT 98
[2023-11-16] MEDS: SODIUM CHLORIDE 0.9% 1,000 ML IV ONE (14:41)
[2023-11-16] MEDS: ONDANSETRON HCL 4MG/2ML INJ IV ONE (14:49)
[2023-11-16 15:08] LABS: CLARITY URINE TURBID (CLEAR); COLOR URINE YELLOW (YELLOW); GLUCOSE URINE NEGATIVE (NEGATIVE); KETONES URINE NEGATIVE (NEGATIVE); LEUKOCYTE ESTERASE URINE 2+ (NEGATIVE); NITRITE URINE POSITIVE (NEGATIVE); OCCULT BLOOD URINE NEGATIVE (NEGATIVE); PROTEIN URINE TRACE (NEGATIVE); SPECIFIC GRAVITY URINE 1.022 (1.005-1.030); UROBILINOGEN URINE 0.2 E.U./dL (0.2-1.0)
[2023-11-16 15:10] LABS: CHLORIDE 104 mEq/L (98-107); POTASSIUM 3.8 mEq/L (3.5-5.1); SODIUM 135 mEq/L (136-145)
[2023-11-16 15:11] LABS: CARBON DIOXIDE 24 mEq/L (21-32)
[2023-11-16 15:12] LABS: CALCIUM 9.8 mg/dL (8.7-10.4)
[2023-11-16 15:16] LABS: CREATININE 0.5 mg/dL (0.6-1.0); GLUCOSE 94 mg/dL (70-105); UREA NITROGEN BLOOD 7 mg/dL (9-23)
[2023-11-16 15:18] LABS: BACTERIA URINE 4+; SQUAMOUS EPITHELIAL CELL URINE 1+ /lpf (RARE/1+); WBC URINE 25-50 /hpf (0-2); YEAST URINE NONE SEEN
[2023-11-16 15:19] LABS: AMORPHOUS SEDIMENT URINE 2+ /lpf
[2023-11-16] MEDS ORDERED: AMOX1TAB16 MT (20:28)
[2023-11-16] MEDS ORDERED: ONDA4TAB11 PO (20:29)
[2023-11-16] MEDS: CEFTRIAXONE 1GM/50ML 50 ML IV ONE (20:46)
== END 2023-11-16 20:48 | disposition home or self-care (01) ==
LOC: ER 14:17
DX: O23.31 Infections of other parts of urinary tract in pregnancy, first trimester (principal); F14.10 Cocaine abuse, uncomplicated; F11.20 Opioid dependence, uncomplicated; Z3A.12 12 weeks gestation of pregnancy; Z79.899 Other long term (current) drug therapy
CPT/HCPCS: 80048; 81003; 81025; 87086; 87186; 87077; 36415; 76801; 76817; 96361; 96374; 99285; J0696; J2405; J7030; Z7610